=== PATIENT | male | born 1950 ===

== ENCOUNTER 2024-02-16 07:05 | Emergency (ER) | payer MEDICARE, SELFPAY ==
[2024-02-16] VITALS (10 sets, daily range): BP systolic 106–123; BP diastolic 58–75; PULSE 94–134; RESP 20–28; TEMP 36.7; O2SAT 84–93
--- NOTE | 2024-02-16 07:09 | ECG_ITS ---
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 Measurements Intervals [place] Rate: 129 P: 75 TN: 125 QRS: 75 QRSD: 91 T: 68 QT: 303 QTc: 444 Interpretive Statements SINUS TACHYCARDIA POSSIBLE LATERAL MYOCARDIAL INFARCTION , OF INDETERMINATE AGE [30 ms Q WAVE IN I/aVL/V5/V6] No previous ECG available for comparison Electronically Signed On 02-17-2024 20:08:39 HOTEL CUSTODIAN by Humberto Garibay M.D. [email or web address]
--- NOTE | 2024-02-16 07:18 | XRR_ITS ---
PROCEDURE INFORMATION: Exam: XR Chest Exam date and time: 02/16/2024 7:23 AM Age: 74 years old Clinical indication: Cough and dyspnea; Additional info: Dyspnea/cough TECHNIQUE: Imaging protocol: Radiologic exam of the chest. Views: 1 view. COMPARISON: No relevant prior studies available. FINDINGS: Tubes, catheters and devices: Surgical clips overlie the mediastinum. Lungs: Pulmonary emphysema identified within the lungs. Linear interstitial and alveolar density in the right perihilar mid lung. Questionable central cavitation within this density. This density measures up to 7.5 cm. There is adjacent linear density extending to the lateral right mid pleural surface. Bilateral pulmonary linear interstitial opacities identified within lower lungs. The bilateral upper lungs appear clear. Pleural spaces: See Lungs finding. No pleural effusion identified. No pneumothorax identified. Heart/Mediastinum: Mediastinum and rahul appear unremarkable. Vasculature: Tortuous and ectatic aorta is demonstrated. Moderate to severe atherosclerotic calcification demonstrated within the aorta. Bones/joints: Diffusely decreased bone density. Generalized bony degenerative changes. Sternotomy wires, hardware is demonstrated. XR/XR chest 1V portable [id number] IMPRESSION: 1. Pulmonary emphysema. 2. Pulmonary atelectasis or acute infiltrates within lower chest bilaterally. 3. Right perihilar linear interstitial and alveolar density with questionable central cavitation. Possible pneumonia versus malignancy. Recommend CT chest imaging. 4. Degenerative and postsurgical changes are demonstrated, as described above.
--- NOTE | 2024-02-16 07:20 | ED_ITS ---
HPI - Chest Pain General: Chief Complaint: Chest Pain Stated Complaint: chest pain/back pain Time Seen by Provider: 02/16/24 07:13 History of Present Illness: 74-year-old female [facility] room with complaints of shortness of breath chest and back pain. Patient has known cancer is metastasized is not currently being treated he usually is treated in [place] he is visiting family here he became increasingly short of breath and worsening pain today he has only hydrocodone at home. He tells me they previously discussed with him going on hospice he does not wish any significant treatment declines workup at this ER visit. He asked simply that his symptoms to be controlled. Later his family was present occluding his sister and his son had the same discussion again with them they are also in agreement. Associated symptoms: Reports dyspnea; Deny abdominal pain or fever(s) Related Data Home Medications Medication Instructions Recorded Confirmed amoxicillin 875 mg-potassium 1 tab PO BID 02/16/24 02/16/24 clavulanate 125 mg tablet apixaban 5 mg tablet (Eliquis) 5 mg PO BID 02/16/24 02/16/24 carvedilol 3.125 mg tablet 3.125 mg PO BID 02/16/24 02/16/24 dapagliflozin propanediol 5 mg 5 mg PO DAILY 02/16/24 02/16/24 tablet (Farxiga) duloxetine 60 mg capsule,delayed 60 mg PO DAILY 02/16/24 02/16/24 release fluticasone fur. 100 mcg-umeclid 1 inh inhalation DAILY 02/16/24 02/16/24 62.5 mcg-vilant 25 mcg inhalat.powder (Trelegy Ellipta) gabapentin 300 mg capsule 300 mg PO DAILY 02/16/24 02/16/24 hydrocodone 10 mg-acetaminophen 1 tab PO QID 02/16/24 02/16/24 325 mg tablet ipratropium 0.5 mg-albuterol 3 mg 3 ml inhalation .Q6-8H 02/16/24 02/16/24 (2.5 mg base)/3 mL nebulization soln isosorbide mononitrate 60 mg 60 mg PO QAM 02/16/24 02/16/24 tablet,extended release 24 hr levothyroxine 75 mcg tablet 75 mcg PO DAILY 02/16/24 02/16/24 losartan 25 mg tablet 25 mg PO DAILY 02/16/24 02/16/24 omeprazole 20 mg capsule,delayed 20 mg PO DAILY 02/16/24 02/16/24 release prednisone 10 mg tablet See Rx Instructions .Route .COMPLEX 02/16/24 02/16/24 roflumilast 500 mcg tablet 500 mcg PO DAILY 02/16/24 02/16/24 ropinirole 0.5 mg tablet 0.5 mg PO QPM 02/16/24 02/16/24 rosuvastatin 20 mg tablet 20 mg PO DAILY 02/16/24 02/16/24 sitagliptin phosphate 50 1 tab PO BID 02/16/24 02/16/24 mg-metformin 1,000 mg tablet (Zoë) Previous Rx's Medication Instructions Recorded atropine 1 % eye drops 4 drp sublingual Q4H PRN 02/16/24 Secretions #5 mL bisacodyl 10 mg rectal suppository 10 mg NJ DAILY PRN Constipation #5 02/16/24 (Dulcolax (bisacodyl)) ea diphenhydramine HCl 25 mg tablet 25 mg PO Q4H PRN Allergic Reaction 02/16/24 #5 tabs hydroxyzine HCl 25 mg tablet 25 mg PO TID PRN Itching #5 tabs 02/16/24 lorazepam 2 mg/mL oral concentrate 2 mg sublingual Q4H PRN 02/16/24 Anxiety/Seizure #30 mL morphine concentrate 100 mg/5 mL 20 mg sublingual DIRECTED PRN 02/16/24 (20 mg/mL) oral solution Pain/SOB 14 days #30 mL ondansetron 4 mg disintegrating 4 mg translingual Q4H PRN Nausea 02/16/24 tablet #5 tabs Allergies Allergy/AdvReac Type Severity Reaction Status Date / Time No Known Allergies Allergy Verified 02/16/24 07:57 Review of Systems Const: Denies: fever(s) or chills Card: Reports: chest pain Resp: Reports: dyspnea GI: Denies: abdominal pain : Denies: dysuria, urinary frequency or urinary urgency Musc: Denies: neck pain or back pain Skin/Breast: Denies: rash PFSH ED PFSH: Medical History (Updated 02/16/24 @ 12:49 by Matt Camp DO) Metastatic primary lung cancer Physical Exam Const: COMMON NORMALS: no acute distress GENERAL APPEARANCE: cooperative and comfortable ORIENTATION/CONSCIOUSNESS: Yes awake, Yes oriented to person, Yes oriented to place and Yes oriented to time HENMT: COMMON NORMALS: normocephalic, atraumatic and hearing grossly normal bilaterally HEAD & SCALP: normocephalic and atraumatic Resp: COMMON NORMALS: normal respiratory effort, No retractions, No use of accessory muscles and clear to auscultation bilaterally AUSCULTATION: clear to auscultation bilaterally Cardio: COMMON NORMALS: regular rate, regular rhythm and No murmurs present (Cardio) RATE: regular rate RHYTHM: regular rhythm GI: COMMON NORMALS: Soft to palpation and No hepatosplenomegaly present AUSCULTATION: Yes normoactive bowel sounds PALPATION: Yes Soft to palpation, No Tenderness to palpation present (GI), No Guarding due to palpation present (GI) and Yes No hepatosplenomegaly present Extremity: COMMON NORMALS: normal to inspection, capillary refill normal, no clubbing, cyanosis or edema, no calf tenderness and no pedal edema Neuro: SENSORIUM/ORIENTATION: Yes oriented to person, Yes oriented to place and Yes oriented to time Skin: COMMON NORMALS: no rashes or lesions noted GENERAL SKIN EXAM: no rashes or lesions noted Course Vital Signs: Vital signs: Vital Signs Temperature 98.1 F 02/16/24 07:06 Pulse Rate 127 H 02/16/24 11:00 Respiratory Rate 20 H 02/16/24 11:00 Blood Pressure 109/75 02/16/24 11:00 Pulse Oximetry 86 L 02/16/24 11:00 Oxygen Delivery Me thod Oxymask 02/16/24 07:38 Oxygen Flow Rate 10 02/16/24 07:38 MDM - Chest Pain Medical Decision Making Patient is requesting comfort cares only was given Ativan and morphine here. He is requiring 10 L by nasal cannula. Family is planning to drive him directly home he was given a comfort care pack of hospice medications. They have a concentrator that is capable of 6 5 to 6 L/min they also have 3 bottles of oxygen they are size EE and discussed with respiratory therapy while they would not be able to have adequate supply by the bottle to get all the way back home if they set the bottle at 5 L/min by oxime mask and apply the nasal cannula from the concentrator at 5 L/min this should effectively deliver 10 L/min and he would have enough supply in the bottles to make it all the way back to his home. Outlined this with the family members. Medicine sent in family member went and got the meds before he left the emergency room to ensure that they would have him for the trip home he was given pain medications here as needed. Family expresses understanding of the plan and will contact hospice your primary care or oncology team when they arrive home. Lab Data Radiology Impressions Chest X-Ray 02/16/24 07:18 IMPRESSION: 1. Pulmonary emphysema. 2. Pulmonary atelectasis or acute infiltrates within lower chest bilaterally. 3. Right perihilar linear interstitial and alveolar density with questionable central cavitation. Possible pneumonia versus malignancy. Recommend CT chest imaging. 4. Degenerative and postsurgical changes are demonstrated, as described above. All radiology interpretation(s) finalized by discharge Discharge Plan Discharge Patient Disposition: Home Clinical Impression: Metastatic primary lung cancer Condition: Stable Prescriptions: New morphine concentrate 100 mg/5 mL (20 mg/mL) Solution 20 mg sublingual DIRECTED MDD N/A PRN (Reason: Pain/SOB) 14 Days Qty: 30 0RF Rx Instructions: 0.25ml-1ml q1H PRN may increase to 0.5ml-1ml Q1H PRN bisacodyl [Dulcolax (bisacodyl)] 10 mg Suppository 10 mg NJ DAILY PRN (Reason: Constipation) Qty: 5 0RF Rx Instructions: 1 suppository per rectum every day PRN for constipation. diphenhydramine HCl 25 mg Tablet 25 mg PO Q4H PRN (Reason: Allergic Reaction) Qty: 5 0RF Rx Instructions: Take one tablet by mouth every 4 hours as needed for allergic reaction hydroxyzine HCl 25 mg Tablet 25 mg PO TID PRN (Reason: Itching) Qty: 5 0RF Rx Instructions: Take 1 tablet by mouth as needed three times a day for itching atropine 1 % Drops 4 drp sublingual Q4H PRN (Reason: Secretions) Qty: 5 0RF Rx Instructions: 4 drops SL q 4 hours PRN for terminal congestion/excessive secretions. ondansetron 4 mg Tablet,Disintegrating 4 mg translingual Q4H PRN (Reason: Nausea) Qty: 5 0RF Rx Instructions: Dissolve 1 tablet under tongue every 4 hours PRN for nausea lorazepam 2 mg/mL Concentrate 2 mg sublingual Q4H PRN (Reason: Anxiety/Seizure) Qty: 30 0RF Rx Instructions: 0.25ml-1ml q4H PRN Anxiety/Seizure Start 0.25ml may increase to 0.5ml-1ml q4H No Action prednisone 10 mg tablet See Rx Instructions .ROUTE .COMPLEX Rx Instructions: TAKE 4 TABLETS BY MOUTH ONCE DAILY FOR 3 DAYS, THREE tablets ONE time A DAY FOR 3 DAYS, ONE TABLET ONCE DAILY FOR 3 DAYS, THEN 0.5 TABLET ONCE DAILY FOR 3 DAYS ipratropium-albuterol 0.5 mg-3 mg(2.5 mg base)/3 mL solution for nebulization 3 ml INHALATION .Q6-8H hydrocodone-acetaminophen 10-325 mg tablet 1 tab PO QID carvedilol 3.125 mg tablet 3.125 mg PO BID levothyroxine 75 mcg tablet 75 mcg PO DAILY isosorbide mononitrate 60 mg tablet extended release 24 hr 60 mg PO QAM ropinirole 0.5 mg tablet 0.5 mg PO QPM losartan 25 mg tablet 25 mg PO DAILY gabapentin 300 mg capsule 300 mg PO DAILY omeprazole 20 mg capsule,delayed release(DR/EC) 20 mg PO DAILY amoxicillin-pot clavulanate 875-125 mg tablet 1 tab PO BID rosuvastatin 20 mg tablet 20 mg PO DAILY duloxetine 60 mg capsule,delayed release(DR/EC) 60 mg PO DAILY Janumet 50-1,000 mg tablet 1 tab PO BID roflumilast 500 mcg tablet 500 mcg PO DAILY Eliquis 5 mg tablet 5 mg PO BID dapagliflozin propanediol [Farxiga] 5 mg tablet 5 mg PO DAILY Trelegy Ellipta 100-62.5-25 mcg blister with device 1 inh INHALATION DAILY Discharge Orders: Discharge ED (Routine); Ordered 02/16/24 Ordered By: Matt Camp Discharge Diet: Usual diet Discharge Activity: Resume usual activity Patient Instructions: Opioid Safety, Pain Management Activity Restrictions/Additional Instructions: Thank you for choosing [facility] for your healthcare needs today. It is very important that you follow up as instructed or that you return to the Emergency Department should you have concerns or if your condition changes or worsens in any way. You were seen in the emergency room with complaints of back pain. You had reported to us that you had lung cancer that you were no longer treating and had discussed hospice with your primary oncologist. You expressed a wish just to be treated for comfort. No significant laboratory work was undertaken today. We did do a chest x-ray to make sure there was not a large amount of fluid in your lung cavity. We could see what appears to be your lung cancer but there is no significant tumor or pneumonia. You were given morphine for pain. At your request we will discharge you home with typical hospice medications. You have expressed a plan to sign up with hospice when you returned to your home physician. Coding Level of Care Code ED Form Drafter for Mihir Sterling
[2024-02-16] MEDS: ondansetron 2 mg/ML SDV 2 mL 4 MG IVP (07:28)
[2024-02-16] MEDS: ipratropium-albuterol 3 mL Neb INHALATION (07:28)
[2024-02-16] MEDS: LORazepam 2 mg/mL INJ 1 mL 1 MG IVP (07:29)
[2024-02-16] MEDS: morphine 4 mg/mL SDV 1 mL IVP (07:31)
[2024-02-16] MEDS: dexamethasone 10 mg/mL INJ IM (07:34)
[2024-02-16] MEDS: HYDROmorphone 1 mg/mL INJ 1 mL 0.5 MG IVP (10:42)
== END 2024-02-16 11:00 | disposition home or self-care (01) ==
PROVIDERS: Emergency Provider Family Medicine
DX: C78.01 Secondary malignant neoplasm of right lung (principal)
CPT/HCPCS: 71045; 93005; 94640; 96372; 96374; 96375; 99284; J1100; J1171; J2060; J2270; J2405